=== PATIENT | male | born 1995 | race African-American/Black ===

== ENCOUNTER 2017-09-18 12:28 | Emergency (ER) | payer OTHER ==
[2017-09-18 12:34] VITALS: BP 123/55; PULSE 68; TEMP 98.2; BMI 25.0
--- NOTE | 2017-09-18 15:19 | PDOC ---
History of Present Illness - General Chief Complaint: Cold Symptoms Stated Complaint: Evaluation for SOB yesterday Time Seen by Provider: 09/18/17 14:26 History Source: Patient Exam Limitations: No Limitations - History of Present Illness Initial Comments: 09/18/17 15:16 22-year-old male presents the ED with complaints of left-sided chest tightness that lasted for about 2 minutes yesterday 2 which resolved with time. Patient states had some difficulty taking a deep breath and with episodes. Patient denies medical history, drug use, recent travel and states exercises routinely. Patient denies recent weight change, cough, fever or chills. Timing/Duration: resolved prior to arrival Severity: mild Associated Symptoms: reports: chest pain Past History - Travel Traveled outside of the country in the last 30 days: No - Past Medical History Allergies/Adverse Reactions: Allergies Allergy/AdvReac Type Severity Reaction Status Date / Time No Known Allergies Allergy Verified 09/18/17 12:34 Home Medications: Ambulatory Orders NK [No Known Home Medication] 09/18/17 COPD: No Psychiatric Problems: Yes (possible anxiety) - Suicide/Smoking/Psychosocial Hx Smoking History: Never smoked Information on smoking cessation initiated: No Hx Alcohol Use: No Drug/Substance Use Hx: No Substance Use Type: None Patient Lives Alone: No Lives with/in: parents Review of Systems - Review of Systems Able to Perform ROS?: Yes Constitutional: No: Symptoms Reported Respiratory: No: Symptoms reported Cardiac (ROS): Yes: Chest Pain ABD/GI: No: Symptoms Reported : No: Symptoms Reported Musculoskeletal: No: Symptoms Reported Integumentary: No: Symptoms Reported Neurological: No: Symptoms reported Psychiatric: Yes: Anxiety Endocrine: No: Symptoms Reported Hematologic/Lymphatic: No: Symptoms Reported *Physical Exam - Vital Signs Last Vital Signs Temp Pulse Resp BP Pulse Ox 98.2 F 68 18 123/55 99 09/18/17 12:31 09/18/17 12:31 09/18/17 12:31 09/18/17 12:31 09/18/17 12:31 - Physical Exam General Appearance: Yes: Nourished, Appropriately Dressed. No: Apparent Distress Neck: positive: Normal Thyroid, Supple Respiratory/Chest: positive: Lungs Clear, Normal Breath Sounds. negative: Chest Tender, Respiratory Distress, Accessory Muscle Use Cardiovascular: positive: Regular Rhythm, Regular Rate. negative: Murmur Gastrointestinal/Abdominal: positive: Soft. negative: Tenderness Extremity: positive: Normal Capillary Refill Integumentary: positive: Normal Color, Warm, Moist Neurologic: positive: Motor Strength 5/5 ( ambulatory) Heart Score/ECG Review - ECG Intrepretation Rhythm: Regular Rhythm (rate 62. Normal sinus rhythm QTC 387 ms.) Medical Decision Making - Medical Decision Making 09/18/17 15:18 Patient with episodic left-sided chest pain which she describes as a tightness lasting for 2 minutes yesterday. Patient had EKG performed with normal sinus rhythm. Patient has been asymptomatic today. Patient recommended to go to the ER when symptoms occur and otherwise follow up with his primary care physician to schedule outpatient cardiology appointment. 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 - Post Discharge Activity
--- NOTE | 2017-09-19 08:02 | EKG ---
Test Reason : Blood Pressure : / mmHG Vent. Rate : 062 BPM Atrial Rate : 062 BPM P-R Int : 178 ms QRS Dur : 106 ms QT Int : 382 ms P-R-T Axes : 072 059 046 degrees QTc Int : 387 ms NORMAL SINUS RHYTHM EARLY REPOLARIZATION NORMAL ECG NO PREVIOUS ECGS AVAILABLE Confirmed by NAUN DREW, VANNA ([id number]) on 09/19/2017 8:01:47 AM Referred By: SN Confirmed By:VANNA MAGALLON MD
== END 2017-09-18 15:23 | disposition home or self-care (01) ==
LOC: JERFT 12:28
DX: R06.02 Shortness of breath (principal); R07.9 Chest pain, unspecified; F41.9 Anxiety disorder, unspecified
CPT/HCPCS: 93005; 93010; 99281-25